=== PATIENT | female | born 1960 | race Caucasian/White ===

== ENCOUNTER 2023-07-07 12:21 | Emergency (ER) | payer OTHER ==
[2023-07-07] MEDS ORDERED: Lidocaine 1% PF 5 ML VIAL ONE (12:47)
[2023-07-07] MEDS ORDERED: Boostrix 0.5 ML (Tdap) VIAL (>/=7 yrs of age) ONE (12:53)
== END 2023-07-07 13:38 | disposition home or self-care (01) ==
LOC: MADERS 12:21
DX: S62.633A Displaced fracture of distal phalanx of left middle finger, initial encounter for closed fracture (principal); S61.313A Laceration without foreign body of left middle finger with damage to nail, initial encounter; K21.9 Gastro-esophageal reflux disease without esophagitis; F17.210 Nicotine dependence, cigarettes, uncomplicated; W31.89XA Contact with other specified machinery, initial encounter; Y93.89 Activity, other specified; Z23 Encounter for immunization; Z79.899 Other long term (current) drug therapy
CPT/HCPCS: 12001; 90471; 90715

== ENCOUNTER 2023-07-10 11:39 | Emergency (ER) | payer OTHER ==
[2023-07-10] MEDS ORDERED: Bacitracin 1 PK ONE (12:49)
== END 2023-07-10 12:48 | disposition home or self-care (01) ==
LOC: MADERS 11:39
DX: S62.633G Displaced fracture of distal phalanx of left middle finger, subsequent encounter for fracture with delayed healing (principal); K21.9 Gastro-esophageal reflux disease without esophagitis; E03.9 Hypothyroidism, unspecified; F17.210 Nicotine dependence, cigarettes, uncomplicated; L08.9 Local infection of the skin and subcutaneous tissue, unspecified; W26.9XXD Contact with unspecified sharp object(s), subsequent encounter
CPT/HCPCS: 99283